=== PATIENT | female | born 1980 | race Caucasian/White ===

== ENCOUNTER 2017-01-10 22:29 | Emergency (ER) | payer SELFPAY ==
[2017-01-10 22:29] VITALS: BMI 30.9
[2017-01-10 22:43] VITALS: BP 131/83; PULSE 69; RESP 20; TEMP 97.6; O2SAT 99
[2017-01-10] MEDS ORDERED: Albuterol-Ipratrop 3 mg / 0.5 (3 ml) UD IH STA (23:02)
[2017-01-10] MEDS ORDERED: Albuterol-Ipratrop 3 mg / 0.5 (3 ml) UD ONE (23:27)
--- NOTE | 2017-01-10 23:46 | C.PDOC ---
History Of Present Illness 36 year old female with history of asthma presents to ED with complaints of cough for 6 days and SOB for the last 2 days. Patient states she was seen at [facility] last week and no medications were given. She went to see her primary who prescribed Prednisone which she is taking. Patient states she continues to have non-productive cough, worse at night and no improvement. Tonight she reports upper back pain with cough. Denies any fever, headache, neck pain, dizziness, abdominal pain. Time Seen by Provider: 01/10/17 22:49 Chief Complaint (Nursing): Shortness Of Breath History Per: Patient History/Exam Limitations: no limitations Onset/Duration Of Symptoms: Days (6), Worse Since (2 days) Current Symptoms Are (Timing): Still Present Sick Contacts (Context): None Severity: Mild Pain Scale Rating Of: 3 Recent travel outside of the [place]: No Past Medical History Reviewed: Historical Data, Nursing Documentation, Vital Signs Vital Signs: Last Vital Signs Temp 97.6 F 01/10/17 22:40 Pulse 69 01/10/17 22:40 Resp 20 01/10/17 22:40 BP 131/83 01/10/17 22:40 Pulse Ox 99 01/10/17 23:47 - Medical History PMH: Asthma Family History: States: Unknown Family Hx - Social History Hx Tobacco Use: No Hx Alcohol Use: No Hx Substance Use: No - Immunization History Hx Tetanus Toxoid Vaccination: No Hx Influenza Vaccination: No Hx Pneumococcal Vaccination: No Review Of Systems Except As Marked, All Systems Reviewed And Found Negative. Constitutional: Negative for: Fever Respiratory: Positive for: Cough, Shortness of Breath Gastrointestinal: Negative for: Abdominal Pain Musculoskeletal: Negative for: Neck Pain Neurological: Negative for: Headache, Dizziness Physical Exam - Physical Exam Appears: Non-toxic, No Acute Distress Skin: Warm, Dry Head: Atraumatic, Normacephalic Eye(s): bilateral: Normal Inspection, PERRL, EOMI Ear(s): Bilateral: Normal Nose: Normal Oral Mucosa: Moist Throat: Normal Neck: Normal ROM, Supple Chest: Symmetrical Cardiovascular: Rhythm Regular Respiratory: Normal Breath Sounds, No Rales, No Rhonchi, No Wheezing Gastrointestinal/Abdominal: Soft, No Tenderness Back: Normal Inspection Extremity: Normal ROM Neurological/Psych: Oriented x3, Normal Speech, Normal Cognition Gait: Steady ED Course And Treatment O2 Sat by Pulse Oximetry: 99 (room air) Pulse Ox Interpretation: Normal Medical Decision Making Medical Decision Makin y.o female with asthma c.o cough for 6 days and no improvement with prednisone. On exam patient has no fever, lungs are clear, heart is regular, chest and back is nontender. Chest xray ordered and reviewed showing no infiltrate, pneumothorax or effusion. Given history of asthma and current complaints of cough for one week, will treat with duoneb and zithromax. On re- examination patient remains afebrile and in no acute respiratory distress. She is stable for discharge. Disposition Counseled Patient/Family Regarding: Need For Followup, Rx Given - Disposition Referrals: Marcin Maynard MD [Staff Provider] - Disposition: HOME/ ROUTINE Disposition Time: 23:47 Condition: IMPROVED Additional Instructions: Continue taking antibiotic and using your asthma medications Follow up with your primary medical doctor or clinic in 2-5 days for further evaluation. Return to the emergency department at any time if symptoms persist or worsen. Prescriptions: Azithromycin 1 tab PO DAILY #4 tab Instructions: Upper Respiratory Infection (ED) - POA Present On Arrival: None - Clinical Impression Clinical Impression: Upper respiratory infection - PA / PLASTICS FITTER / Resident Statement MD/DO has reviewed & agrees with the documentation as recorded. - Scribe Statement The provider has reviewed the documentation as recorded by the Scribe Ela Coates All medical record entries made by the Scribe were at my direction and personally dictated by me. I have reviewed the chart and agree that the record accurately reflects my personal performance of the history, physical exam, medical decision making, and the department course for this patient. I have also personally directed, reviewed, and agree with the discharge instructions and disposition.
--- NOTE | 2017-01-11 08:34 | RAD ---
HISTORY: cough, sob COMPARISON: 01/06/2016 TECHNIQUE: Chest PA and lateral FINDINGS: LUNGS: Mild venous congestion. Right hilar prominence. Bibasilar breast and nipple shadows. Small nodular density projecting over the lower lung zone on the lateral view likely represents prominent vessel on end. PLEURA: No significant pleural effusion identified. No pneumothorax apparent. CARDIOVASCULAR: Normal. OSSEOUS STRUCTURES: No significant abnormalities. VISUALIZED UPPER ABDOMEN: Normal. OTHER FINDINGS: None. IMPRESSION: Mild venous congestion. Right hilar prominence. Bibasilar breast and nipple shadows. Small nodular density projecting over the lower lung zone on the lateral view likely represents prominent vessel on end.
== END 2017-01-11 00:12 | disposition home or self-care (01) ==
LOC: C.ER 22:29
DX: J06.9 Acute upper respiratory infection, unspecified (principal)